=== PATIENT | male | born 1970 | race Caucasian/White ===

== ENCOUNTER 2017-05-05 00:41 | Emergency (ER) | payer SELFPAY ==
[~2017-05-05] VITALS: Ht 180.3 cm; Wt 74.8 kg
[2017-05-05 00:55] VITALS: BP 134/93
[2017-05-05 01:41] LABS: APPEARANCE,URINE CLEAR; KETONES,URINE NEGATIVE (NEGATIVE); LEUKOCYTE ESTERASE ,URINE NEGATIVE (NEGATIVE); NITRITE,URINE NEGATIVE (NEGATIVE); PH,URINE 6 (4.5-8.0); PROTEIN,URINE NEGATIVE (NEGATIVE); UROBILINOGEN,URINE NORMAL MG/DL (0.0-1.0)
--- NOTE | 2017-05-05 01:46 | Emergency Room Report ---
History of Present Illness General Chief Complaint: Male Urogenital Problems Source: Patient Present Illness HPI Is a 47-year-old male with no significant past medical history. He presents with chief complaint of difficulty urinating. Also noticed some swelling and bleeding tonight. Symptom been ongoing for last 3-4 days. No nausea no vomiting. No significant pain other than dysuria. No frequency or urgency. No discharge no history of STD. Better now. Allergies: Coded Allergies: No Known Allergies (Unverified , 05/05/17) Patient History Past Medical History: see triage record, old chart reviewed Past Surgical History: other Pertinent Family History: none Social History: Denies: smoking Immunizations: other Reviewed Nursing Documentation: PMH: Agreed, PSxH: Agreed Nursing Documentation-PM Past Medical History: No Stated History Review of Systems Eye: Denies: blurred vision, eye pain ENT: Denies: ear pain, nose congestion, throat swelling Respiratory: Denies: cough, shortness of breath Cardiovascular: Denies: chest pain, palpitations Gastrointestinal: Denies: abdominal pain, diarrhea, nausea, vomiting Musculoskeletal: Denies: back pain, joint pain Skin: Denies: rash Neurological: Denies: headache, numbness Endocrine: Denies: increased thirst, increased urine Hematologic/Lymphatic: Denies: easy bruising All Other Systems: negative except mentioned in HPI Physical Exam Vital Signs Date Time Temp Pulse Resp B/P Pulse Ox O2 Delivery O2 Flow Rate FiO2 05/05/17 00:47 97.5 66 16 134/93 99 Room Air vitals normal Sp02 EP Interpretation: reviewed, normal General Appearance: well appearing, no apparent distress, alert Head: normocephalic, atraumatic Eyes: bilateral eye EOMI, bilateral eye PERRL ENT: hearing grossly normal, normal pharynx Neck: full range of motion, supple, no meningismus Respiratory: chest non-tender, lungs clear, normal breath sounds Cardiovascular #1: regular rate, rhythm, no murmur Gastrointestinal: normal bowel sounds, non tender, no mass, no organomegaly, no bruit, non-distended Musculoskeletal: back normal, gait/station normal, normal range of motion Psychiatric: mood/affect normal Skin: warm/dry Medical Decision Making Diagnostic Impression: Primary Impression: Hematuria Qualified Codes: R31.9 - Hematuria, unspecified Additional Impression: UTI (urinary tract infection) Qualified Codes: N30.00 - Acute cystitis without hematuria ER Course Patient presents with hematuria. He may have passed a small kidney stone. He fell better now. No evidence of obstruction. There is trace bacteria and CBC. Will treat as possible and infection. We'll discharge home. CT/MRI/US Diagnostic Results CT/MRI/US Diagnostic Results : Imaging Test Ordered: CT abdomen and pelvis Impression Read by radiologist. Negative. Last Vital Signs Date Time Temp Pulse Resp B/P Pulse Ox O2 Delivery O2 Flow Rate FiO2 05/05/17 00:55 97.5 16 134/93 99 Room Air 05/05/17 00:47 66 Status: improved Disposition: HOME, SELF-CARE Condition: Stable Scripts Cephalexin* (KEFLEX*) 500 Mg Capsule 500 MG ORAL TID, #21 CAP 0 Refills Prov: GEORGES GOLDBERG M.D. 05/05/17 Referrals: NOT CHOSEN [facility]/,REFERRING (PCP) Patient Instructions: Urinary Tract Infection Additional Instructions: Followup with your Dr. in 7 days. Return if symptom worsen. GEORGES GOLDBERG M.D. May 05, 2017 01:46
[2017-05-05 01:51] LABS: BACTERIA,URINE FEW /HPF; RBC,URINE 40-60 /HPF (0 - 0)
[2017-05-05] MEDS ORDERED: KEFLEX500 MG ORAL (02:57)
[2017-05-05 03:05] VITALS: BP 134/93
--- NOTE | 2017-05-05 09:44 | Diagnostic Imaging Report ---
Indication: Abdominal pain Technique: Spiral acquisitions obtained through the abdomen and pelvis. No oral contrast utilized, per emergency room physician request No IV contrast utilized, per referring physician request.. Multiplanar reconstructions were generated. Total dose length product mGycm. CTDIvol(s) mGy. Dose reduction achieved using automated exposure control Comparison: Findings: A few questionable tiny punctate calculi are seen in the left renal lower pole collecting system. Equivocal tiny punctate calculi are seen within the right renal collecting system as well. No evidence of hydronephrosis or hydroureter, or ureteral calculi. Lack of IV contrast limits assessment of the renal parenchyma. No gross renal parenchymal mass or cyst demonstrated. The seminal vesicles, bladder are unremarkable. Lack of IV contrast limits assessment of the other solid organs. The liver, gallbladder, bile ducts, pancreas, spleen, adrenals are unremarkable. No retroperitoneal or mesenteric mass or adenopathy. No pelvic mass or adenopathy. Normal appendix. No evidence of diverticulosis or diverticulitis. No small bowel distention. No free or loculated intraperitoneal air or fluid is evident. Distal esophagus, stomach, duodenum are unremarkable. The included lung bases are clear. The bones are unremarkable.. Impression: Equivocal tiny nonobstructive bilateral intrarenal calculi, could be artifactual Otherwise essentially unremarkable exam This agrees with the preliminary interpretation provided overnight by [facility]. The CT scanner at [facility] is accredited by the [employer] and the scans are performed using protocols designed to limit radiation exposure to as low as reasonably achievable to attain images of sufficient resolution adequate for diagnostic evaluation.
== END 2017-05-05 03:05 | disposition home or self-care (01) ==
LOC: EMR 01:24
DX: R31.9 Hematuria, unspecified (principal); N39.0 Urinary tract infection, site not specified
CPT/HCPCS: 74176; 81003; 99284